=== PATIENT | female | born 1965 | race Caucasian/White ===

== ENCOUNTER → 2017-04-30 | Outpatient (CLI) | payer BC ==
[~2017-04-30] VITALS: Ht 170.2 cm; Wt 113.4 kg
[~2017-04-30] MED LIST: ALEVE220 MG PO; ASPIR 8181 MG PO; ATIVAN0.5 MG PO; ESCITALOPRAM OX10 MG PO; PANTOPRAZOLE SO40 M1 PO; SYMBICORT160 MCG/4. INH; VENTOLIN HFA 1818 GM INH
--- NOTE | ~2017-04-30 | P ---
[facility] [place] [address] PROCEDURE REPORT Name: BONICHENG D Room #: REG [facility]#: [id number] Admission: 04/30/17 Attend Phys: Yan Sanabria MD Discharge: Date of : 69 Report #: [id number] THIS REPORT FOR: //name// CC: Yan Downing DO OUTPATIENT COLONOSCOPY REPORT DATE OF SERVICE: 04/30/2017. BRIEF HISTORY: The patient is a 52-year-old woman for average risk screening colonoscopy. PREOPERATIVE DIAGNOSIS: Average risk screening colonoscopy. POSTOPERATIVE DIAGNOSES: Mild to moderate sigmoid diverticulosis coli. MEDICATIONS: Deep sedation with propofol per anesthesia. SPECIMEN: None. ESTIMATED BLOOD LOSS: None. PROCEDURE: Colonoscopy to cecum and terminal ileum. FINDINGS: Prior to propofol sedation, procedure of colonoscopy discussed with the patient as well as potential risks and its complications. She indicates she understands and desires to proceed. DESCRIPTION OF PROCEDURE: With the patient in left lateral decubitus position, digital examination was completed which revealed no abnormalities. Subsequently, the [employer] video colonoscope was introduced into the rectum and advanced under direct vision to the cecum. Done with minimal difficulty. The cecum was identified by the ileocecal valve and the appendiceal orifice. I was able to visualize the distal segment of terminal ileum, which was inspected and noted to be unremarkable. At that point, the scope was slowly withdrawn and careful circumferential views obtained including retroflexing the scope in the ascending colon. Upon slow withdrawal of the scope, the prep was excellent. The mucosa was within normal limits, normal vascular pattern, normal light reflex. No neoplastic or inflammatory changes were seen. As we withdrew the scope, normal mucosa was noted throughout the colon. As the scope was withdrawn to the sigmoid colon, mild to moderate sigmoid diverticular disease was seen, but there was no endoscopic evidence of diverticulitis. The scope was withdrawn in the rectum. Upon retroflexion, no abnormalities were seen. Scope was withdrawn. The patient tolerated the procedure well. [address] [address] PROCEDURE REPORT Name: CHENG PLATA Room #: [facility]#: [id number] Admission: 04/30/17 Attend Phys: Yan Sanabria MD Discharge: Date of : 69 Report #: [id number] CONDITION OF THE PATIENT UPON DISCHARGE: Following procedure, the patient drowsy, aroused and will be discharged home when fully ambulatory. INSTRUCTIONS TO THE PATIENT AND FAMILY AT THE TIME OF DISCHARGE: No neoplastic lesions seen on today's exam. Suggest high fiber diet for the diverticular disease. She has considered average risk. Would suggest a screening for average risk screening colonoscopy in 10 years or sooner if needed for specific symptoms. Withdrawal time from the cecum was 12 minutes. <ELECTRONICALLY SIGNED> By: Yan Sanabria MD 05/07/17 0725 [id number] Yan Sanabria MD /nt
== END ==
LOC: GI 07:36 → EDSTATUS 13:46
DX: Z12.11 Encounter for screening for malignant neoplasm of colon (principal); K57.30 Diverticulosis of large intestine without perforation or abscess without bleeding; J45.909 Unspecified asthma, uncomplicated; F32.9 Major depressive disorder, single episode, unspecified; F41.9 Anxiety disorder, unspecified; K21.9 Gastro-esophageal reflux disease without esophagitis; Z90.49 Acquired absence of other specified parts of digestive tract; Z98.890 Other specified postprocedural states
CPT/HCPCS: 62110; 62900